=== PATIENT | male | born 1970 | race Caucasian/White ===

== ENCOUNTER 2019-11-15 08:01 | Outpatient (CLI) | payer BC, SELFPAY ==
--- NOTE | 2019-11-23 01:48 | SLEEP_ITS ---
Home Sleep Apnea Testing Report. DATE OF STUDY: 11/15/2019 REASON FOR STUDY: Suspected sleep apnea. CLINICAL SUMMARY: [place] Sleepiness Scale, 11/01. Normal is 10 or less. Snoring, apneic events, morning headache, excessive daytime sleepiness, memory impairment, hypertension, diabetes mellitus type 2, and depression. Height is 6 feet. Weight is 280 pounds. Body mass index, BMI is 37.9. Less than 26 recommended. METHODOLOGY: UNATTENDED HOME SLEEP APNEA TESTING: Nocturnal HSAT was performed on 11/14/2019, using recording parameters, which include abdominal and thoracic respiratory effort, heart rate, body position, nasal airflow, with snoring and oximetry. Based on the review of the recorded signals, the study quality was adequate for interpretation. Data was interpreted following standard [facility] criteria utilizing the 30% reduction in airflow resulting in at least 4% desaturation definition for hypopnea. RESPIRATORY EVENTS SUMMARY: Total recording time was 8 hours and 18 minutes. Respiratory monitoring revealed 3 central apneas, no obstructive, no mixed apnea, resulting in apnea-hypopnea index AHI of 7.9 per hour. OXYGEN SATURATION SUMMARY: The lowest oxygen saturation was 82%. Baseline oxygen saturation was 96%. Average oxygen saturation was 90%. Oxygen saturation was equal or lower than 90% for 59% of the total sleep time. SNORE SUMMARY: Total number of snoring events were 3627. HEART RATE SUMMARY: Minimum pulse was 53 beats per minute. Maximum pulse was 88 beats per minute. Average pulse was 70 beats per minute. IMPRESSION: There is evidence of mild obstructive sleep apnea with AHI of 7.9 per hour associated with lowest oxygen saturation of 83 beats per minute. Pulse averaged 70 beats per minute. Home sleep apnea testing may underestimate the severity of obstructive sleep apnea. Home sleep apnea testing does not evaluate for any sleep disorder other than sleep apnea. SPECIAL RECOMMENDATIONS: 1. Obtain a CPAP titration study. 2. Reassess daytime sleep-related symptoms after the use of CPAP. GENERAL RECOMMENDATIONS: 1. Ec Teacher the patient to lose weight to maintain a normal BMI. 2. Encouragedthe patient to adhere to healthy sleep hygiene with regular sleep-wake cycle and adequate total sleep time of 7 to 8 hours. 3. Caution the patient against the use of sedative medications, alcohol, nicotine, caffeine as these can exacerbate an underlying sleep disorder especially when taken during the 4 to 6 hours before bedtime. 4. Advise the patient to avoid operating a motor vehicle, dangerous machinery until daytime sleep-related symptoms have resolved. 5. Educate the patient on short and long-term complications of untreated obstructive sleep apnea on quality of life, health-related issues, and mortality. AGAPITO PORRAS M.D. [facility] LINE CREWMAN D I MT: Mynor ORELLANA
== END 2019-11-15 08:02 ==
LOC: ANHCSM 02-14 08:02
PROVIDERS: Visit Provider Physician Assistant
DX: G47.33 Obstructive sleep apnea (adult) (pediatric) (principal)
CPT/HCPCS: 95806

== ENCOUNTER 2023-04-03 03:24 | Day surgery (SDC) | payer BC, SELFPAY ==
[2023-03-19 11:18] VITALS: BMI 35.9
[2023-04-03 10:20] VITALS: BP 129/90; PULSE 65; RESP 16; TEMP 36.1; O2SAT 98
[2023-04-03] MEDS: LACTATED RINGERS 1,000 ML 150 ML IV CONT (10:40)
[2023-04-03 10:41] LABS: Glucose Point of Care 128 mg/dl (65-105)
--- NOTE | 2023-04-03 10:53 | PM.HPGS ---
History of Present Illness History of Present Illness Consent: Risks, benefits, and alternatives have been discussed and questions answered. Patient agrees to proceed with procedure. Chief complaint: neoplasm screening Narrative: Micheal Parker is a 52 year old male Presents for screening colonoscopy. Patient's current weight appetite and bowel movements are normal. Patient denies abdominal pain. He has had no bleeding. Family history is noncontributory. Review of Systems Review of Systems: Review of systems noncontributory. [facility] Past Medical History Medical History Anxiety Depression Diabetes mellitus type 2 with complications Hyperlipidemia Hypertension Insomnia Obstructive sleep apnea Surgical History Surgical History History of shoulder surgery right 1994 Family History Family History (Updated 02/11/23 @ 10:52 by SUSU Steele) Father Multiple myeloma Mother Parkinsons disease Grandparent Bone cancer Heart disease Social History Social History Smoking status: Never smoker Tobacco type: smokeless tobacco Smokeless tobacco user: chewing tobacco Alcohol intake: current Alcohol use details: rarely Substance use: never Substance use type: does not use Lack of Transportation: No Lack of Food: Never True Current Housing: I Have Housing Concerned About Future Housing: No Difficulty Paying Gas/Electric Bills: No Difficulty Paying for Meds: No Currently Unemployed: No Education: Trade/Vocational Certificate Difficulty w/ Childcare or Family Care: No Living arrangements: with family Occupation/Education: occupation Gender identity (if verbalized by the patient): Male Sexual Orientation (if Verbalized by the Patient): Straight or Heterosexual Spiritual care concerns: No Meds Home Medications and Allergies Home Medications Medication Instructions Recorded Confirmed Type venlafaxine 150 mg 150 mg PO DAILY #90 caps 01/14/23 04/03/23 Rx capsule,extended release 24 hr amlodipine 10 mg tablet 10 mg PO DAILY #30 tabs 02/11/23 04/03/23 Rx aspirin 81 mg tablet,delayed 81 mg PO DAILY #30 tabs 02/11/23 04/03/23 Rx release (Adult Low Dose Aspirin) atorvastatin 20 mg tablet 20 mg PO QHS #30 tabs 02/11/23 04/03/23 Rx candesartan 32 1 tablet PO DAILY #30 tabs 02/11/23 04/03/23 Rx mg-hydrochlorothiazide 25 mg tablet dapagliflozin 10 mg tablet 10 mg PO DAILY #30 tabs 02/11/23 04/03/23 Rx (Farxiga) nebivolol 10 mg tablet (Bystolic) 10 mg PO DAILY #30 tabs 02/11/23 04/03/23 Rx zolpidem 10 mg tablet 10 mg PO QHS 02/11/23 04/03/23 History metformin 500 mg tablet 500 mg PO BID 90 days #180 tabs 02/16/23 04/03/23 Rx Allergies Allergy/AdvReac Type Severity Reaction Status Date / Time OXYCODONE HCL Allergy Mild NAUSEA Uncoded 04/03/23 10:18 Vital Signs Vital Signs - 24 hr 04/03/23 10:20 Temperature 97.0 F L Pulse Rate 65 Respiratory Rate 16 Blood Pressure 129/90 Pulse Oximetry 98 Oxygen Delivery Room Air Exam Narrative: Physical exam reveals patient to be alert. Vital signs stable. HEENT exam is unremarkable. Patient is anicteric. Lungs are clear to auscultation and percussion. Heart is without murmur or extra sounds. Abdominal exam bowel sounds are present soft nontender with no organomegaly. Digital rectal exam is normal. Assessment and Plan Assessment and plan (1) Encounter for screening colonoscopy: Code(s): Z12.11 - Encounter for screening for malignant neoplasm of colon Status: Acute Assessment and Plan: Patient presents today for screening colonoscopy. He appears to be at average risk for colon polyps. Further recommendations may be given after endoscopy.
--- NOTE | 2023-04-03 11:30 | WPDANESEPPF ---
Anes - Initial Pre Proc Eval Procedure: Operation Date: 04/03/23 11:00 Proposed Procedures p Screening Colonoscopy - Carlos Guevara MD Date/Time: 04/03/23 11:30 Surgeon: Carlos Guveara MD Pre Op Diagnosis: neoplasm screening Patient Data Age: 52 Gender: M Height: 1.83 m Weight: 118.6 kg Last Vital Signs Temp 97.0 F L 04/03/23 10:20 Pulse 65 04/03/23 10:20 Resp 16 04/03/23 10:20 BP 129/90 04/03/23 10:20 Pulse Ox 98 04/03/23 10:20 O2 Del Method Room Air 04/03/23 10:20 Allergies Allergy/AdvReac Type Severity Reaction Status Date / Time OXYCODONE HCL Allergy Mild NAUSEA Uncoded 04/03/23 10:18 Home Medications Medication Instructions Recorded Confirmed Type venlafaxine 150 mg 150 mg PO DAILY #90 caps 01/14/23 04/03/23 Rx capsule,extended release 24 hr amlodipine 10 mg tablet 10 mg PO DAILY #30 tabs 02/11/23 04/03/23 Rx aspirin 81 mg tablet,delayed 81 mg PO DAILY #30 tabs 02/11/23 04/03/23 Rx release (Adult Low Dose Aspirin) atorvastatin 20 mg tablet 20 mg PO QHS #30 tabs 02/11/23 04/03/23 Rx candesartan 32 1 tablet PO DAILY #30 tabs 02/11/23 04/03/23 Rx mg-hydrochlorothiazide 25 mg tablet dapagliflozin 10 mg tablet 10 mg PO DAILY #30 tabs 02/11/23 04/03/23 Rx (Farxiga) nebivolol 10 mg tablet (Bystolic) 10 mg PO DAILY #30 tabs 02/11/23 04/03/23 Rx zolpidem 10 mg tablet 10 mg PO QHS 02/11/23 04/03/23 History metformin 500 mg tablet 500 mg PO BID 90 days #180 tabs 02/16/23 04/03/23 Rx Laboratory Tests 04/03/23 10:39 POC Capillary Glucose 128 H mg/dl (65-105) Patient hx anesthesia problems: none Family hx anesthesia problems: none Results Review: All pre-operative results and documents have been reviewed as part of the pre-operative evaluation. [facility] Past Medical History Medical History Anxiety Depression Diabetes mellitus type 2 with complications Hyperlipidemia Hypertension Insomnia Obstructive sleep apnea Surgical History Surgical History History of shoulder surgery right 1994 Family History Family History (Updated 02/11/23 @ 10:52 by SUSU Steele) Father Multiple myeloma Mother Parkinsons disease Grandparent Bone cancer Heart disease Social History Social History Smoking status: Never smoker Tobacco type: smokeless tobacco Smokeless tobacco user: chewing tobacco Alcohol intake: current Alcohol use details: rarely Substance use: never Substance use type: does not use Lack of Transportation: No Lack of Food: Never True Current Housing: I Have Housing Concerned About Future Housing: No Difficulty Paying Gas/Electric Bills: No Difficulty Paying for Meds: No Currently Unemployed: No Education: Trade/Vocational Certificate Difficulty w/ Childcare or Family Care: No Living arrangements: with family Occupation/Education: occupation Gender identity (if verbalized by the patient): Male Sexual Orientation (if Verbalized by the Patient): Straight or Heterosexual Spiritual care concerns: No Anes - Eval Final PreProcedure Day of Procedure 04/03/23 11:30 Patient weight: obese Heart: regular rate and rhythm Lungs: clear to auscultation Airway: Mallampati scale class II Neurological: alert and oriented Last oral intake: >/= 8 hours ASA classification: III Emergent: no Anesthetic plan: proceed Anesthesia type and monitoring: general GIVS and standard monitoring Results Review: All pre-operative results and documents have been reviewed as part of the pre-operative evaluation. Informed Consent: The patient's anesthetic plan and its attendant risks and benefits were discussed with the patient/family/POA. Questions were solicited and answers provided to the satisfaction of the patient/fami
[2023-04-03 11:57] VITALS: BP 119/81; PULSE 67; RESP 15; O2SAT 98
[2023-04-03 12:07] VITALS: BP 123/85; PULSE 66; RESP 16; O2SAT 98
[2023-04-03 12:17] VITALS: BP 125/88; PULSE 67; RESP 16; O2SAT 98
== END 2023-04-03 12:22 | disposition home or self-care (01) ==
PROVIDERS: PCP Family Medicine; Visit Provider Internal Medicine Gastroenterology
PROC: 0DJD8ZZ Inspection of Lower Intestinal Tract, Via Natural or Artificial Opening Endoscopic (ICD-10-PCS; CPT 45378; principal; 2023-04-03 11:00)
DX: Z12.11 Encounter for screening for malignant neoplasm of colon (principal); D12.4 Benign neoplasm of descending colon; K64.8 Other hemorrhoids; I10 Essential (primary) hypertension; E78.5 Hyperlipidemia, unspecified; E11.9 Type 2 diabetes mellitus without complications; G47.33 Obstructive sleep apnea (adult) (pediatric); G47.00 Insomnia, unspecified; F41.9 Anxiety disorder, unspecified; F32.A Depression, unspecified; Z79.82 Long term (current) use of aspirin; Z79.84 Long term (current) use of oral hypoglycemic drugs; F17.220 Nicotine dependence, chewing tobacco, uncomplicated; E66.9 Obesity, unspecified; Z68.35 Body mass index [BMI] 35.0-35.9, adult
CPT/HCPCS: 45385; 82948; 88305; J2001; J2704; J7120